=== PATIENT | female | born 1975 | race Caucasian/White ===

== ENCOUNTER 2018-07-14 13:23 | Emergency (ER) | payer MEDICARE, OTHER ==
--- NOTE | 2018-07-14 14:18 | EDM.PDOC ---
ED HPI GENERAL MEDICAL PROBLEM - General Chief Complaint: Back Pain or Injury Stated Complaint: FELL ON ICE Time Seen by Provider: 07/14/18 14:17 Source of Information: Reports: Patient History Limitations: Reports: No Limitations - History of Present Illness INITIAL COMMENTS - FREE TEXT/NARRATIVE: HISTORY AND PHYSICAL: []43-year-old female presenting with lower back pain and head pain History of Present Illness: []Patient states that she fell on the ice landing on her buttocks then hit on her head/she says she feels sleepy History of L2-3 and for fusion Review of Systems: As per history of present illness and below otherwise all systems reviewed and negative. Past medical history: As per history of present illness and as reviewed below otherwise noncontributory. Surgical history: As per history of present illness and as reviewed below otherwise noncontributory. Social history: No reported history of drug or alcohol abuse. Family history: As per history of present illness and as reviewed below otherwise noncontributory. Physical exam: Alert and oriented answering questions appropriately in full sentences without any shortness of breath. HEENT: Atraumatic, normocehpalic, pupils reactive, negative for conjunctival pallor or scleral icterus, mucous membranes moist, throat clear, neck supple, nontender, trachea midline. PERRLA no nystigmus. No step offs. Lungs: Clear to auscultation, breath sounds equal bilaterally, chest non tender. Heart: S1S2, regular, negative for clicks, rubs, or JVD. Abdomen: Soft, nondistended, nontender. Negative for masses or hepatossplenmegaly. Negative for costovertebral tenderness. Pelvis: Stable nontender. Genitourinary: Deferred. Rectal: Deferred Extremities: Atraumatic, negative for cords or calf pain. Leg strength is from laying on the table and equal strength bilaterally. Hand grasps are equal bilaterally Neurovascular unremarkable. Neuro: Awake, alert, oriented. Cranial nerves II through XII unremarkable. Cerebellum unremarkable. Motor and sensory unremarkable throughout. Exam nonfocal. His cast results of the CT scans with the patient and her no gross abnormalities were noted on exam CT scan does not show any bleeds or lesions Result lumbar spine did not show any acute abnormalities Diagnostics: []Head CT Lumbar spine Therapeutics: []toradal Impression: []Mild concussion Plan: []Discharged home Diclofenac Flexeril Follow up with your primary care provider Return to the emergency department as directed Definitive disposition and diagnosis as appropriate pending reevaluation and review of above. Onset: Sudden lower back Pain Score (Numeric/FACES): 10 - Related Data Allergies Allergy/AdvReac Type Severity Reaction Status Date / Time acetaminophen [From Percocet] Allergy Hallucinati Verified 07/14/18 14:10 ons oxycodone [From Percocet] Allergy Hallucinati Verified 07/14/18 14:10 ons silver Allergy Blisters Verified 07/14/18 14:09 [From Tegaderm AG Mesh] Home Meds: Home Meds Cyclobenzaprine [Flexeril] 10 mg PO TID #21 tab 07/14/18 [Rx] Diclofenac Sodium [Voltaren] 75 mg PO BIDMEALS #20 tab.cr 07/14/18 [Rx] Past Medical History - Infectious Disease History Infectious Disease History: Reports: Chicken Pox - Past Surgical History HEENT Surgical History: Reports: Myringotomy w Tube(s), Tonsillectomy Female Surgical History: Reports: Tubal Ligation Neurological Surgical History: Reports: Other (See Below) Other Neurological Surgeries/Procedures: Back Musculoskeletal Surgical History: Reports: Other (See Below) Other Musculoskeletal Surgeries/Procedures:: Back x8 Social & Family History - Family History Family Medical History: Noncontributory - Tobacco Use Smoking Status *Q: Never Smoker Second Hand Smoke Exposure: Yes - Caffeine Use Caffeine Use: Reports: Tea - Recreational Drug Use Recreational Drug Use: No ED ROS GENERAL - Review of Systems Review Of Systems: ROS reveals no pertinent complaints other than HPI. ED EXAM,LOWER BACK PAIN/INJURY - Physical Exam Exam: See Below (see dictation) Course - Vital Signs Last Recorded V/S: Last Vital Signs Temp 37.0 C 07/14/18 14:07 Pulse 75 07/14/18 14:52 Resp 18 07/14/18 14:52 BP 127/48 L 07/14/18 14:52 Pulse Ox 96 07/14/18 14:52 - Orders/Labs/Meds Meds: Medications Discontinued Medications Generic Name Dose Route Start Last Admin Trade Name Freq PRN Reason Stop Dose Admin Ketorolac Tromethamine 60 mg 07/14/18 14:21 07/14/18 14:52 Toradol IM 07/14/18 14:22 60 mg ONETIME ONE Administration Departure - Departure Time of Disposition: 15:38 Disposition: Home, Self-Care 01 Condition: Good Clinical Impression: Mild concussion Qualifiers: Encounter type: initial encounter Loss of consciousness presence/duration: without LOC Qualified Code(s): S06.0X0A - Concussion without loss of consciousness, initial encounter Back pain Qualifiers: Back pain location: low back pain Chronicity: acute Back pain laterality: unspecified Sciatica presence: without sciatica Qualified Code(s): M54.5 - Low back pain - Discharge Information *PRESCRIPTION DRUG MONITORING PROGRAM REVIEWED*: Not Applicable *COPY OF PRESCRIPTION DRUG MONITORING REPORT IN PATIENT FRANCESCA: Not Applicable Prescriptions: Cyclobenzaprine [Flexeril] 10 mg PO TID #21 tab Diclofenac Sodium [Voltaren] 75 mg PO BIDMEALS #20 tab.cr Referrals: PCP,None [Primary Care Provider] - Forms: ED Department Discharge Additional Instructions: The following information is given to patients seen in the emergency department who are being discharged to home. This information is to outline your options for follow-up care. We provide all patients seen in our emergency department with a follow-up referral. The need for follow-up, as well as the timing and circumstances, are variable depending upon the specifics of your emergency department visit. If you don't have a primary care physician on staff, we will provide you with a referral. We always advise you to contact your personal physician following an emergency department visit to inform them of the circumstance of the visit and for follow-up with them and/or the need for any referrals to a consulting specialist. The emergency department will also refer you to a specialist when appropriate. This referral assures that you have the opportunity for followup care with a specialist. All of these measure are taken in an effort to provide you with optimal care, which includes your followup. Under all circumstances we always encourage you to contact your private physician who remains a resource for coordinating your care. When calling for followup care, please make the office aware that this follow-up is from your recent emergency room visit. If for any reason you are refused follow-up, please contact the [facility] emergency department at and asked to speak to the emergency department charge nurse. Discharged home Diclofenac Flexeril Follow up with your primary care provider Return to the emergency department as directed
[2018-07-14] MEDS ORDERED: Ketorolac 60 MG/2 ML SDV IM ONE (14:21)
--- NOTE | 2018-07-14 14:51 | CT ---
EXAMINATION: Non contrast CT head. Coronal and sagittal reformats. HISTORY: Pain FINDINGS: No evidence of intra or extra axial hemorrhage, mass, midline shift, hydrocephalus or edema. No hypoattenuation changes in the major vascular territories to suggest acute infarct. No abnormal intracranial calcifications are detected. No evidence of substantial vascular calcifications. Orbits and globes are symmetric. Paranasal sinuses and mastoid air cells are well aerated without substantial findings. Pituitary fossa appears unremarkable. Calvarium is intact. No evidence of skull fracture. IMPRESSION: No acute intracranial findings.
--- NOTE | 2018-07-14 15:02 | CR ---
EXAMINATION: Lumbar spine HISTORY: Pain COMPARISON: None TECHNIQUE: AP and lateral views FINDINGS: The lumbar spinal alignment is normal. The vertebral body heights appear maintained. Intervertebral hardware noted from L3 to S1 without significant interbody osseous fusion. Overlying laminectomy changes. The SI joints are symmetric. Mild marginal osteophyte formation. Bone mineralization is otherwise unremarkable. IMPRESSION: Mild degenerative changes and postoperative changes within the lumbar spine without acute findings.
== END 2018-07-14 16:06 | disposition home or self-care (01) ==
LOC: MW.ED 13:23
DX: S06.0X0A Concussion without loss of consciousness, initial encounter (principal); M54.5 Low back pain; Z88.5 Allergy status to narcotic agent; Z88.8 Allergy status to other drugs, medicaments and biological substances; Z90.89 Acquired absence of other organs; Z98.51 Tubal ligation status; Z96.22 Myringotomy tube(s) status; Z77.22 Contact with and (suspected) exposure to environmental tobacco smoke (acute) (chronic); W00.0XXA Fall on same level due to ice and snow, initial encounter; Y92.89 Other specified places as the place of occurrence of the external cause
CPT/HCPCS: 70450; 72100; 96372; 99284; J1885